=== PATIENT | male | born 1995 | race African-American/Black ===

== ENCOUNTER 2023-01-17 02:10 | Emergency (ER) | payer MEDICAID, SELFPAY ==
[2023-01-17 02:12] VITALS: BP 144/80; PULSE 91; RESP 18; TEMP 36.6; O2SAT 94; BMI 24.0
--- NOTE | 2023-01-17 02:30 | ED.RN ---
per Dr. Quach no need for sitter at this time patient does not present with a plan
[2023-01-17 02:43] LABS: Absolute Neutrophil Count 5.5 X10^3/uL (2.0-7.7); Basophil# 0.03 X10^3/uL; Basophil% 0.4 % (0-1); Eosinophil# 0.08 X10^3/uL; Hematocrit 47.8 % (40-54); Hemoglobin 15.8 g/dL (13.0-16.5); Lymphocyte % 23.8 % (19-41); Mean Corp Hgb Conc 33.1 g/dL (32-36); Mean Corpuscular Hgb 29.3 pg (27.0-32.0); Mean Corpuscular Volume 88.5 fL (80-94); Mean Platelet Vol. 9.2 fl (6.2-12.0); Monocyte# 0.49 X10^3/uL; Monocyte% 6.1 % (0-10); NRBC Flagged by Analyzer 0 % (0-5); Neutrophil # 5.47 X10^3/uL (2.7-7.7); Neutrophil % 68.6 % (47-70); Platelet Count 403 K/mm3 (150-450); RBC Distribution Width CV 12.2 % (11.6-14.6); RBC Distribution Width SD 39.8 fl (35.1-43.9)
[2023-01-17 02:56] LABS: Anion Gap 8 (5-15); BUN 9 mg/dL (7-18); Calcium,Total 8.8 mg/dL (8.5-10.1); Chloride 107 mmol/L (98-107); EST Glomerular Filtration Rate 96 mL/min (>60); Est Glom Filt Rate - Afr Amer 117 mL/min (>60); Estimated Creatinine Clearance 122.87 ml/min; Glucose 109 mg/dL (74-106); Potassium 3.5 mmol/L (3.5-5.1); Sodium Level 141 mmol/L (136-145)
[2023-01-17 03:33] LABS: Amphetamine Urine VISTA NEGATIVE (<1000 ng/mL); Barbiturate Urine VISTA NEGATIVE (< 200 ng/mL); Benzodiazepine Urine VISTA NEGATIVE (< 200 ng/mL); Cocaine Urine VISTA POSITIVE (< 300 ng/mL); Ecstacy Urine VISTA NEGATIVE (< 500 ng/mL); Methadone Urine VISTA NEGATIVE (< 300 ng/mL); PCP Urine VISTA NEGATIVE (< 25 ng/mL); THC Urine VISTA POSITIVE (< 50 ng/mL); Vista UDS pH Range 6
--- NOTE | 2023-01-17 03:40 | NURSING ---
CALLED CRISIS AT [id number]
--- NOTE | 2023-01-17 04:53 | ED.RN ---
crisis on the phone with patient at this time
--- NOTE | 2023-01-17 05:17 | EDS_ITS ---
HPI History of Present Illness Chief Complaint: Suicidal Narrative Narrative: Patient was brought into the hospital by police secondary to suicidal ideation. Please states that the patient went to the [facility] seeking help for depression with suicidal ideation. Patient states that his aunt recently and this is causing increased depression and he has thoughts of harming himself. As the patient has stated this to the police officers as well as the [facility] there was concern that he would need placed in the psychiatric hospital and therefore was brought to the hospital for medical clearance. Upon arrival the patient does voice depression with suicidal ideation. He states he was admitted to a psychiatric hospital years ago when he thought about jumping off a bridge. He denies alcohol or illicit drug use at this time and states that he does not have a plan of how to harm himself but based on his aunts recent passing and worsening depression has thoughts of suicide. [facility] Medical History Bipolar 1 disorder Schizoaffective disorder Home Medications gabapentin 600 mg tablet 600 mg PO TID 01/17/23 [History Last Taken Unknown] quetiapine 400 mg tablet (Seroquel) 400 mg PO DAILY 01/17/23 [History Last Taken Unknown] trazodone 300 mg tablet 300 mg PO QHS 01/17/23 [History Last Taken Unknown] Allergy/AdvReac Type Severity Reaction Status Date / Time acetaminophen [From Vicodin] Allergy Other Verified 01/17/23 02:17 hydrocodone [From Vicodin] Allergy Other Verified 01/17/23 02:17 Social History Smoking Status: Never smoker [facility] ED Constitutional Constitutional ED: Denies chills or fever(s) Eyes Eyes: Denies change in vision ENT ENT ED: Denies sore throat Cardiovascular Cardiovascular: Denies chest pain Respiratory/Chest Respiratory/Chest: Denies cough or dyspnea Gastrointestinal Gastrointestinal: Denies abdominal pain, diarrhea, nausea or vomiting Genitourinary Genitourinary ED: Denies dysuria Musculoskeletal Musculoskeletal: Denies myalgias Integumentary Denies rash Neurologic Neurologic: Denies headache(s) Psychiatric Psychiatric: Reports depression, suicidal ideation and suicidal thoughts Hematologic/Lymphatic Hematologic/Lymphatic: Denies easy bleeding or easy bruising EXAM Physical Exam Const Vital Signs: 01/17/23 02:12 01/17/23 06:15 Temperature 97.9 F Temperature Source Temporal Pulse Rate 91 Respiratory Rate 18 18 Blood Pressure 144/80 H Blood Pressure Mean 101 Pulse Ox 94 100 Oxygen Delivery Method Room Air Room Air Positive well nourished and well developed General Appearance ED: well developed Eyes PERRL and EOMs intact bilaterally Neck supple Chest Wall palpation of chest normal Resp normal respiratory effort and clear to auscultation bilaterally Cardio regular rate and regular rhythm Rate: other Other Details: Radial pulses are plus 2 out of 4 bilaterally are equal and symmetric GI normal to inspection, nondistended, normoactive bowel sounds, non-tender, non- distended and no masses GI Narrative: No voluntary guarding or rigidity no pulsatile mass or fluid wave Auscultation: normoactive bowel sounds Palpation: soft Extremity normal to inspection Neuro oriented x3, CN's II-XII intact bilaterally and no sensory deficits noted Sensorium / Orientation: alert Psych Psych Narrative: Patient has a manic affect with flight of ideas but also suicidal ideation Skin no rashes or lesions noted MDM MDM MDM Narrative Medical decision making narrative: Patient was brought in by police secondary to suicidal ideation. He reported a remote history of suicide ideation with need for psychiatric placement. At this time he does not have an overt plan but he also shows signs of kyle with flight of ideas and tangential thought. Based on his suicidal ideation along with these changes consistent with manic bipolar episode I do feel he would benefit from placement so a psychiatric work-up was performed. Patient denied alcohol use prior to arrival but his value was 90. However this is below 100 and therefore he is still able to talk to crisis center. Patient also had marijuana and cocaine in his system but marijuana can last for 30 days and cocaine 3 to 5 days. Pressure is only slightly elevated and he is not tachycardic so I have low concern that he did this illicit drug recently. The patient was medically cleared from an emergency room standpoint and crisis center evaluated the patient. They agree that with his poor support status suicidal ideation and manic phase that he would benefit from treatment and recommend placement. The patient has been medically cleared from emergency room standpoint for transfer/placement to psychiatric hospital History & Record Review Discussion w/independent historian: Patient Lab Data Attestation: I reviewed the patient's lab results. Labs: Laboratory Results - last 24 hr 01/17/23 01/17/23 01/17/23 02:35 02:35 02:35 WBC 8.0 RBC 5.40 Hgb 15.8 Hct 47.8 MCV 88.5 MCH 29.3 MCHC 33.1 RDW Std Deviation 39.8 RDW Coeff of Deric 12.2 Plt Count 403 MPV 9.2 Immature Gran % (Auto) 0.100 Neut % (Auto) 68.6 Lymph % (Auto) 23.8 Alpine % (Auto) 6.1 Eos % (Auto) 1.0 Baso % (Auto) 0.4 Absolute Neuts (auto) 5.5 Absolute Lymphs (auto) 1.90 Nucleated RBC % 0 Sodium 141 Potassium 3.5 Chloride 107 Carbon Dioxide 26.0 Anion Gap 8 BUN 9 Creatinine 1.00 Estim Creat Clear Calc 122.87 Est GFR (MDRD) Af Amer 117 Est GFR (MDRD) Non-Af 96 BUN/Creatinine Ratio 9.0 L Glucose 109 H Calcium 8.8 Urine Opiates Screen Urine Methadone Screen Ur Barbiturates Screen Ur Phencyclidine Scrn Ur Amphetamines Screen MDMA (Ecstasy) Screen U Benzodiazepines Scrn Urine Cocaine Screen U Cannabinoids Screen Ur Drug Screen Comment Ethyl Alcohol 90.0 01/17/23 03:00 WBC RBC Hgb Hct MCV MCH MCHC RDW Std Deviation RDW Coeff of Deric Plt Count MPV Immature Gran % (Auto) Neut % (Auto) Lymph % (Auto) Alpine % (Auto) Eos % (Auto) Baso % (Auto) Absolute Neuts (auto) Absolute Lymphs (auto) Nucleated RBC % Sodium Potassium Chloride Carbon Dioxide Anion Gap BUN Creatinine Estim Creat Clear Calc Est GFR (MDRD) Af Amer Est GFR (MDRD) Non-Af BUN/Creatinine Ratio Glucose Calcium Urine Opiates Screen NEGATIVE Urine Methadone Screen NEGATIVE Ur Barbiturates Screen NEGATIVE Ur Phencyclidine Scrn NEGATIVE Ur Amphetamines Screen NEGATIVE MDMA (Ecstasy) Screen NEGATIVE U Benzodiazepines Scrn NEGATIVE Urine Cocaine Screen POSITIVE H U Cannabinoids Screen POSITIVE H Ur Drug Screen Comment Ethyl Alcohol Discharge Plan Triage Chief Complaint: Suicidal ED Provider: Corey Quach Dx/Rx/DC Orders Clinical Impression: Depression with suicidal ideation, Moderate bipolar I disorder with kyle as current episode Prescriptions: No Action gabapentin 600 mg Tablet 600 mg PO TID trazodone 300 mg Tablet 300 mg PO QHS quetiapine [Seroquel] 400 mg Tablet 400 mg PO DAILY Primary Care Provider: Care Physician,No Primary Referrals: Care Physician,No Primary [Primary Care Provider] - Disposition Disposition: Psychiatric Hospital or Unit
[2023-01-17 06:15] VITALS: RESP 18; O2SAT 100
--- NOTE | 2023-01-17 08:19 | ED.RN ---
0848 LATONYA FROM CRISIS CONTACTED THE ED REGARDING PLACEMENT. HE HAS BEEN REFERRED TO [facility], AWAITING PLACEMENT.
[2023-01-17 09:00] VITALS: BP 117/65; PULSE 73; RESP 15; TEMP 37.1; O2SAT 97
--- NOTE | 2023-01-17 10:37 | CM.ED ---
Social Work Pt accepted to [facility] and awaiting transport. Scheduled for approx. 12:45. Edith Remy MANUFACTURING TECHNOLOGY ANALYST, TUNE UP MECHANIC
== END 2023-01-17 13:14 ==
PROVIDERS: Emergency Provider Emergency Medicine; Visit Provider Emergency Medicine
DX: R45.851 Suicidal ideations (principal); F25.9 Schizoaffective disorder, unspecified; F31.9 Bipolar disorder, unspecified
CPT/HCPCS: 36415; 80048; 80307; 82077; 85025; 87811; 99284

== ENCOUNTER 2023-01-31 15:56 | Emergency (ER) | payer MEDICAID, SELFPAY ==
[2023-01-31 15:58] VITALS: BP 138/80; PULSE 100; RESP 18; TEMP 36.1; O2SAT 95; BMI 25.5
--- NOTE | 2023-01-31 16:59 | EX.ED.VIS.PS ---
HPI HPI - Psych History of Present Illness Chief Complaint: Suicidal Associated Symptoms Associated Symptoms - Psych: Positive for Depressed, Suicidal Thoughts and Auditory Hallucinations; Negative for Confusion, Paranoia or Visual Hallucinations Specific plan (suicidal thought): Overdose on pills Narrative Narrative: Patient presents with suicidal ideations that began today. Patient states he started hearing voices today. Patient states they are telling him to hurt himself. Patient states he has a plan to overdose on pills. Patient denies any visual hallucinations. Patient states nothing makes his symptoms better nothing makes them worse. Patient states the voices come and go. Patient states he does not currently see a psychiatrist. Patient does not take any medications. [facility] Medical History Bipolar 1 disorder Schizoaffective disorder Home Medications quetiapine 400 mg tablet (Seroquel) 400 mg PO DAILY 01/17/23 [History Last Taken Unknown] trazodone 300 mg tablet 300 mg PO QHS 01/17/23 [History Last Taken Unknown] hydroxyzine pamoate 50 mg capsule (Vistaril) 50 mg PO BID PRN Anxiety 01/31/23 [History Last Taken Unknown] Allergy/AdvReac Type Severity Reaction Status Date / Time acetaminophen [From Vicodin] Allergy Other Verified 01/31/23 16:01 hydrocodone [From Vicodin] Allergy Other Verified 01/31/23 16:01 Surgical History no surgical history no surgical history Social History (Updated 01/31/23 @ 17:[address] Paresh Sidhu DO) Smoking Status: Current every day smoker tobacco type: cigarettes Smoking packs per day: 0.5 Smoking cigarettes per day: 10.0 alcohol intake: current alcohol intake frequency: 0-2 drinks per day Alcohol type: beer ROS ROS ED Constitutional Constitutional ED: Denies chills or fever(s) Eyes Eyes: Denies blurry vision or change in vision ENT ENT ED: Denies rhinorrhea or sore throat Cardiovascular Cardiovascular: Denies chest pain or palpitations Respiratory/Chest Respiratory/Chest: Denies cough or dyspnea Gastrointestinal Gastrointestinal: Denies nausea or vomiting Genitourinary Genitourinary ED: Denies dysuria or hematuria Musculoskeletal Musculoskeletal: Denies back pain or neck pain Integumentary Denies abscess or rash Neurologic Neurologic: Denies headache(s) or weakness Psychiatric Psychiatric: Reports depression, suicidal ideation and suicidal thoughts Allergic/Immunologic Allergic/Immunologic ED: Denies mouth swelling or urticaria EXAM Physical Exam Const Vital Signs: 01/31/23 15:58 01/31/23 19:42 01/31/23 20:02 Temperature 97 F L Temperature Source Temporal Pulse Rate 100 85 Respiratory Rate 18 18 16 Blood Pressure 138/80 H 129/85 H Blood Pressure Mean 99 99 Pulse Ox 95 99 Oxygen Delivery Method Room Air Room Air 02/01/23 00:11 Temperature Temperature Source Pulse Rate Respiratory Rate 18 Blood Pressure Blood Pressure Mean Pulse Ox Oxygen Delivery Method Room Air Positive well nourished and well developed General Appearance ED: well developed and NAD HEENT normocephalic and atraumatic Neck supple and no JVD Resp normal respiratory effort and clear to auscultation bilaterally Cardio no murmurs Rate: regular rate Rhythm: regular rhythm GI non-tender and non-distended Auscultation: normoactive bowel sounds Palpation: soft Extremity normal to inspection General Extremety ED: Negative for edema or tenderness General Extremity: Negative for edema Neuro oriented x3, CN's II-XII intact bilaterally and no sensory deficits noted Sensorium / Orientation: alert Motor Exam: strength 5/5 throughout Psych mental status grossly normal Appearance: well kempt Attitude: calm Activity / Motor Behavior: avoids eye contact Speech: minimal and soft Mood & Affect: depressed and flat affect Thought Content: suicidality and hallucination(s) Positive for auditory Skin Rashes: no rashes MDM MDM MDM Narrative Medical decision making narrative: Medical screening labs will be obtained. CBC will be obtained to assess for leukocytosis and anemia. Basic metabolic profile will be obtained to assess for electrolyte abnormality and renal function. Serum alcohol level will be obtained to assess for alcohol intoxication. Urine tox screen will be obtained to assess for substance abuse. COVID-19 rapid antigen will be obtained to assess for COVID-19 infection. Lab Data Attestation: I reviewed the patient's lab results. Lab results narrative: CBC was reviewed and was within normal limits. Basic metabolic profile was reviewed and was within normal limits. Serum alcohol level was reviewed and was less than 3.0. COVID-19 rapid antigen was reviewed and was negative. Urine tox screen was reviewed and was positive for cocaine and cannabinoids. Labs: Laboratory Results - last 24 hr 01/31/23 01/31/23 01/31/23 16:16 16:16 17:15 WBC 10.0 RBC 4.97 Hgb 14.7 Hct 44.9 MCV 90.3 MCH 29.6 MCHC 32.7 RDW Std Deviation 41.4 RDW Coeff of Deric 12.7 Plt Count 346 MPV 9.6 Immature Gran % (Auto) 0.400 Neut % (Auto) 72.9 H Lymph % (Auto) 17.6 L Chase % (Auto) 7.8 Eos % (Auto) 1.0 Baso % (Auto) 0.3 Absolute Neuts (auto) 7.3 Absolute Lymphs (auto) 1.75 Nucleated RBC % 0 Sodium Potassium Chloride Carbon Dioxide Anion Gap BUN Creatinine Estim Creat Clear Calc Est GFR (MDRD) Af Amer Est GFR (MDRD) Non-Af BUN/Creatinine Ratio Glucose Calcium Total Creatine Kinase Urine Color Yellow Urine Clarity Clear Urine pH 7.0 Ur Specific [place] 1.010 Urine Protein 30 H Urine Glucose (UA) Normal Urine Ketones 5 H Urine Occult Blood 10 H Urine Nitrite Negative Urine Bilirubin Negative Urine Urobilinogen 1 H Ur Leukocyte Esterase 25 H Urine RBC 0 SEEN Urine WBC 0-5 SEEN Ur Squamous Epith Cells 0 SEEN Urine Bacteria 2+ Urine Mucus 1+ Urine Opiates Screen NEGATIVE Urine Methadone Screen NEGATIVE Ur Barbiturates Screen NEGATIVE Ur Phencyclidine Scrn NEGATIVE Ur Amphetamines Screen NEGATIVE MDMA (Ecstasy) Screen NEGATIVE U Benzodiazepines Scrn NEGATIVE Urine Cocaine Screen POSITIVE H U Cannabinoids Screen POSITIVE H Ur Drug Screen Comment Ethyl Alcohol 01/31/23 01/31/23 01/31/23 17:15 17:15 17:15 WBC RBC Hgb Hct MCV MCH MCHC RDW Std Deviation RDW Coeff of Deric Plt Count MPV Immature Gran % (Auto) Neut % (Auto) Lymph % (Auto) Chase % (Auto) Eos % (Auto) Baso % (Auto) Absolute Neuts (auto) Absolute Lymphs (auto) Nucleated RBC % Sodium 141 Potassium 3.9 Chloride 107 Carbon Dioxide 28.0 Anion Gap 6 BUN 12 Creatinine 1.13 Estim Creat Clear Calc 99.06 Est GFR (MDRD) Af Amer 101 Est GFR (MDRD) Non-Af 83 BUN/Creatinine Ratio 10.6 Glucose 99 Calcium 8.9 Total Creatine Kinase 3141 H Urine Color Urine Clarity Urine pH Ur Specific [place] Urine Protein Urine Glucose (UA) Urine Ketones Urine Occult Blood Urine Nitrite Urine Bilirubin Urine Urobilinogen Ur Leukocyte Esterase Urine RBC Urine WBC Ur Squamous Epith Cells Urine Bacteria Urine Mucus Urine Opiates Screen Urine Methadone Screen Ur Barbiturates Screen Ur Phencyclidine Scrn Ur Amphetamines Screen MDMA (Ecstasy) Screen U Benzodiazepines Scrn Urine Cocaine Screen U Cannabinoids Screen Ur Drug Screen Comment Ethyl Alcohol < 3.0 Management Discussion w/another healthcare provider: utility worker production/Case management Treatment and Re-Evaluation Narrative: utility worker production was in to evaluate the patient. She felt that the patient would benefit from inpatient psychiatric treatment. She will arrange for transfer to a psychiatric facility. Patient is agreeable with the plan. All questions were answered. Patient was tentatively accepted to a psychiatric facility. However, they requested a total CPK be drawn. This came back elevated at 3141. Because of this, 2 L of normal saline were infused. Urinalysis was obtained to assess for myoglobinuria and urine pH. Urinalysis showed occult blood and with 0 red blood cells, indicating low levels of myoglobin in the urine. Urine pH was 7.0. Repeat CPK was ordered after the infusion of 2 L of normal saline. This is pending. Care of the patient will be turned over to the oncoming physician pending repeat CPK results and transfer to psychiatric facility. Discharge Plan Triage Chief Complaint: Suicidal ED Provider: Paresh Sidhu Dx/Rx/DC Orders Clinical Impression: Suicidal ideation, Auditory hallucination Prescriptions: No Action trazodone 300 mg Tablet 300 mg PO QHS quetiapine [Seroquel] 400 mg Tablet 400 mg PO DAILY hydroxyzine pamoate [Vistaril] 50 mg Capsule 50 mg PO BID PRN (Reason: Anxiety) Primary Care Provider: Care Physician,No Primary Referrals: Care Physician,No Primary [Primary Care Provider] - Disposition Disposition: Psychiatric Hospital or Unit
[2023-01-31 17:26] LABS: Absolute Lymphocyte Count 1.75 X10^3/uL (0.83-4.51); Absolute Neutrophil Count 7.3 X10^3/uL (2.0-7.7); Basophil# 0.03 X10^3/uL; Basophil% 0.3 % (0-1); Hematocrit 44.9 % (40-54); Hemoglobin 14.7 g/dL (13.0-16.5); Lymphocyte # 1.75 X10^3/ul (0.83-4.51); Lymphocyte % 17.6 % (19-41); Mean Corp Hgb Conc 32.7 g/dL (32-36); Mean Corpuscular Hgb 29.6 pg (27.0-32.0); Mean Corpuscular Volume 90.3 fL (80-94); Mean Platelet Vol. 9.6 fl (6.2-12.0); Monocyte# 0.78 X10^3/uL; Monocyte% 7.8 % (0-10); NRBC Flagged by Analyzer 0 % (0-5); Neutrophil # 7.26 X10^3/uL (2.7-7.7); Neutrophil % 72.9 % (47-70); Platelet Count 346 K/mm3 (150-450); RBC Distribution Width CV 12.7 % (11.6-14.6); RBC Distribution Width SD 41.4 fl (35.1-43.9); Red Blood Count 4.97 M/mm3 (4.6-6.2)
[2023-01-31 17:40] LABS: Anion Gap 6 (5-15); BUN 12 mg/dL (7-18); BUN/Creat Ratio 10.6 RATIO (10-20); Calcium,Total 8.9 mg/dL (8.5-10.1); Chloride 107 mmol/L (98-107); Creatinine, Serum 1.13 mg/dL (0.70-1.30); EST Glomerular Filtration Rate 83 mL/min (>60); Est Glom Filt Rate - Afr Amer 101 mL/min (>60); Estimated Creatinine Clearance 99.06 ml/min; Glucose 99 mg/dL (74-106); Potassium 3.9 mmol/L (3.5-5.1); Sodium Level 141 mmol/L (136-145)
[2023-01-31 17:40] LABS: Amphetamine Urine VISTA NEGATIVE (<1000 ng/mL); Barbiturate Urine VISTA NEGATIVE (< 200 ng/mL); Benzodiazepine Urine VISTA NEGATIVE (< 200 ng/mL); Cocaine Urine VISTA POSITIVE (< 300 ng/mL); Ecstacy Urine VISTA NEGATIVE (< 500 ng/mL); Methadone Urine VISTA NEGATIVE (< 300 ng/mL); PCP Urine VISTA NEGATIVE (< 25 ng/mL); THC Urine VISTA POSITIVE (< 50 ng/mL); Vista UDS pH Range 6
[2023-01-31 18:05] LABS: Alcohol, Blood (Medical)-Serum < 3.0 mg/dL
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
[2023-01-31 19:42] VITALS: BP 129/85; PULSE 85; RESP 18; O2SAT 99
[2023-01-31 20:02] VITALS: RESP 16
[2023-01-31 21:36] LABS: CPK Total, Creatine Kinase 3141 U/L (39-308)
--- NOTE | 2023-01-31 21:55 | CM.ED ---
Social Work Patient referred for psych placement at [facility] and [facility]. [facility] requested CPK lab. CPK results faxed and [facility] reports it is extremely high and they would like it below 1500 before they will accept him. Requesting to fax redraw when below 1500. Edith Remy MANAGER ETL, ELECTRICAL AND ELECTRONIC ASSEMBLER
[2023-01-31] MEDS: 0.9% Normal Saline 1,000 ML 999 ML IV (23:10)
[2023-02-01] VITALS (9 sets, daily range): BP systolic 122; BP diastolic 86; PULSE 74; RESP 16–18; O2SAT 95–98
[2023-02-01] MEDS: 0.9% Normal Saline 1,000 ML 999 ML IV ×2 (00:03→02:22)
[2023-02-01 00:13] LABS: Color, Urine Yellow (Yellow); Glucose, Dipstick Normal (Normal); Ketone-Dipstick 5 mg/dl (Negative); Leukocyte Esterase-Dipstick 25 /ul (Negative); Nitrite-Dipstick Negative (Negative); Occult Blood-Urine 10 /ul (Negative); Protein-Dipstick 30 mg/dl (Negative); Red Blood Cells-Urine 0 SEEN /hpf (0-5); Squamous Epithelial Cells - UA 0 SEEN /hpf (0-5); Urine Bilirubin Dipstick Negative (Negative); Urine Clarity Clear (Clear); Urine Urobilinogen 1 mg/dl (Normal)
[2023-02-01 00:22] LABS: Bacteria 2+ /hpf (None Seen); White Blood Cells 0-5 SEEN /hpf (0-5)
[2023-02-01 00:23] LABS: Mucous, Urine 1+ /hpf (<or=2+)
[2023-02-01 02:12] LABS: CPK Total, Creatine Kinase 1930 U/L (39-308)
[2023-02-01] MEDS: QUEtiapine 100 MG Tablet 400 MG PO (02:21)
[2023-02-01 05:54] LABS: CPK Total, Creatine Kinase 1780 U/L (39-308)
[2023-02-01] MEDS: 0.9% Normal Saline 1,000 ML 250 ML IV (07:43)
--- NOTE | 2023-02-01 10:02 | CM.ED ---
Social Work SW received voicemail from [facility] admission staff stating they were declining patient due to behavioral acuity. MAYRA contacted [facility] to inquire about progress with patient's referral. Admission staff explained the patient has been accepted to their dual diagnosis unit, however, they need his CK levels to be below 1500 and a pink slip faxed to their facility before they provide accepting information. Care team updated. Plan: [facility] LUCAS, JAYJAY
--- NOTE | 2023-02-01 12:01 | ED.RN ---
pt is rude and disrespectful towards staff, cussing at staff. pt is rudeful towards Tiana the sitter, calling her names and demanding another sitter. pt is staring at sitter, grimacing. pt demanding new food. HRO and security at bedside.
--- NOTE | 2023-02-01 12:07 | ED.RN ---
THIS RN CALLED INTO PT'S ROOM. PT DEMANDING THAT HE SEE A DOCTOR RIGHT NOW. PT STATES I AM NOT PINK SLIPPED, I AM NOT SUICIDAL AND I WANT TO LEAVE RIGHT NOW. THIS RN STATES THAT SHE WILL ASK THE DR TO COME IN TO SPEAK WITH THE PATIENT. PT THEN BEGINS GETTING INCREASINGLY AGITATED. HRO NOTIFIED AND RETURNS TO BEDSIDE OF PT WITH THIS RN. PT STATES THAT HE IS DOES NOT WANT TO SEE THIS RN OR ANYONE ELSE BUT THE DR. PT DEMANDING NEW FOOD FOR LUNCH AT THIS TIME WELL. DR. BARAHONA NOTIFIED OF PATIENT AGITATION AT THIS TIME.
[2023-02-01 12:41] LABS: CPK Total, Creatine Kinase 1395 U/L (39-308)
--- NOTE | 2023-02-01 13:56 | NURSING ---
[facility] CALLED WITH ACCEPTANCE TO THEIR [place] LOCATION-- [address] V[address]LELA-- [address]-- RN TO RN-- [phone]-- CALLED PHYSICIANS TO SET UP TRANSPORT-- ETA GIVEN 20 MINUTES-- [id number]
--- NOTE | 2023-02-01 13:59 | CM.ED ---
Addendum entered by Lexi Hernandez 02/01/23 15:00: MAYRA contacted [facility] to inquire about rules regarding medication as patient was agitated regarding placement. [facility] staff report patient would have to be here four hrs after medication before he could be transported. MAYRA updated care team, patient is currently cooperative. HRO at bedside, no medication given. ETA 20 mins Plan: [facility] JAYJAY Mckenzie Original Note: Social Work Note [facility] has accepted patient under [facility], dual unit [address], [id number] [phone]. legal secretary to arrange transportation ETA 20 mins. MAYRA updated [facility] of accepting information. Plan: JAYJAY Ocampo
--- NOTE | 2023-02-01 14:17 | ED.RN ---
REPORT CALLED TO [facility] AT THIS TIME.
--- NOTE | 2023-02-01 14:22 | ED.RN ---
PT IV DISCONTINUED AT THIS TIME. PT TOLD THAT HE WAS PLACED AT [facility] IN [place]. PT STATES I DONT WANT TO DO THIS ANYMORE. NOPE. WHERE'S THE DOCTOR? THIS RN AND JESSICA CHARGE NURSE EXPLAIN TO PT THAT HE IS PINK SLIPPED AND THE DOCTOR DOES NOT HAVE A SAY IN WHERE THE PATIENT IS PLACED. FIRE EQUIPMENT OPERATOR DAWN EXPLAINS THAT [facility] IS THE ONLY PLACE TO ACCEPT PT AT THIS TIME/. PT LAYS BACK IN BED AND CLOSES EYES TO SLEEP
--- NOTE | 2023-02-01 14:25 | ED.RN ---
PT BECOMES AGITATED AND WALKS OUT TO NURSES STATION DEMANDING HIS BELONGINGS. THIS RN TELLS PATIENT THAT AT THIS TIME HE IS UNABLE TO HAVE HIS BELONGINGS. PT DEMANDING TO SEE HIS PINK SLIP AND STATES THAT POLICE TOLD ME LAST NIGHT THAT IM NOT PINK SLIPPED. LET ME SEE IT. THIS RN ASKS PATIENT IF HE COULD GO BACK TO HIS ROOM AND WE COULD TALK THERE. PT BECOMES INCREASINGLY AGITATED AND BEGINS TO RUN FROM STAFF STATING THAT HE IS LEAVING. PT CONTINUES TO RUN AWAY FROM STAFF AND RUNS PAST [place] ROOM OPERATOR OFFICES INTO [employer]. THIS RN ASKS PATIENT TO COME BACK TO ROOM AND PT RUNS TO GROUND FLOOR PUSHING OTHER PATIENTS AND [facility] STAFF. THIS RN FOLLOWS PATIENT TO SEE WHICH WAY HE WAS RUNNING TO NOTIFY PD. CODE SID ACTIVATED.
== END 2023-02-01 15:59 ==
PROVIDERS: Emergency Medicine; Emergency Provider Emergency Medicine; Visit Provider Emergency Medicine
DX: R45.851 Suicidal ideations (principal); F17.210 Nicotine dependence, cigarettes, uncomplicated; R44.0 Auditory hallucinations
CPT/HCPCS: 80048; 80307; 81001; 82077; 82550; 85025; 87811; 99281; J7030; A4216

== ENCOUNTER 2023-06-03 11:26 | Outpatient (REF) | payer SELFPAY ==
[2023-06-03 11:27] VITALS: BP 92/74; PULSE 90; RESP 18; TEMP 36.1; O2SAT 100
--- NOTE | 2023-06-03 11:59 | EX.ED.DYSGE1 ---
HPI History of Present Illness Chief Complaint: ETOH Intox Informant: patient and police/traveling phlebotomist Narrative Narrative: 27-year-old male presenting to the emergency department with the police. Patient reportedly was arrested in [place] on a [facility] warrant. He tells me that he was sleeping outside. He states that he is not homeless that he stays at his aunts. When asked why he was sleeping outside he tells me it was none of my business. He states that he did have alcohol last night but will not tell me how much and of what. He denies ingesting any substances or prescription medications. Reportedly had a episode of emesis and was brought to the emergency department prior to booking at the intermediate. I asked the patient about his red left eye and he tells me its not of my business and that it is his right to not disclose medical information to me. When asked if he has any medical concerns he wishes to speak with me about he tells me no. PFSH PFSH Medical History Bipolar 1 disorder Schizoaffective disorder Home Medications quetiapine 400 mg tablet (Seroquel) 400 mg PO DAILY 01/17/23 [History Last Taken Unknown] trazodone 300 mg tablet 300 mg PO QHS 01/17/23 [History Last Taken Unknown] hydroxyzine pamoate 50 mg capsule (Vistaril) 50 mg PO BID PRN Anxiety 01/31/23 [History Last Taken Unknown] Allergy/AdvReac Type Severity Reaction Status Date / Time acetaminophen [From Vicodin] Allergy Other Verified 06/03/23 11:26 hydrocodone [From Vicodin] Allergy Other Verified 06/03/23 11:26 Social History Smoking Status: Current every day smoker tobacco type: cigarettes alcohol intake: current alcohol intake frequency: 0-2 drinks per day Alcohol type: beer ROS ROS ED Constitutional Constitutional ED: Denies chills, fever(s) or weight loss Eyes Eyes: Denies change in vision or diplopia ENT ENT ED: Denies ear pain, rhinorrhea or sore throat Cardiovascular Cardiovascular: Denies chest pain, orthopnea, palpitations or racing heartbeat Respiratory/Chest Respiratory/Chest: Denies cough, dyspnea or orthopnea Gastrointestinal Gastrointestinal: Reports vomiting; Denies abdominal pain, diarrhea or nausea Genitourinary Genitourinary ED: Denies dysuria, hematuria or urinary frequency Musculoskeletal Musculoskeletal: Denies arthralgias or myalgias Integumentary Denies abscess or rash Neurologic Neurologic: Denies headache(s) or weakness Psychiatric Psychiatric: Denies anxiety, depression, suicidal ideation or suicidal thoughts Endocrine Endocrinology: Denies polydipsia, polyphagia or polyuria Allergic/Immunologic Allergic/Immunologic ED: Denies mouth swelling, tongue swelling or urticaria EXAM Physical Exam Narrative Exam Narrative: Patient smells of vomit Const Vital Signs: 06/03/23 11:27 Temperature 97 F L Temperature Source Temporal Pulse Rate 90 Respiratory Rate 18 Blood Pressure 92/74 Blood Pressure Mean 80 Pulse Ox 100 Oxygen Delivery Method Room Air Positive well nourished and well developed General Appearance ED: well developed HEENT Reports normocephalic, head/scalp atraumatic and moist mucous membranes Eyes Eyes Narrative: The left eye appears to have a slight lateral gaze. The conjunctiva is injected greater than the right. He will not open his eyes for me to do a full examination Neck no lymphadenopathy, supple and no JVD Resp normal respiratory effort and clear to auscultation bilaterally Cardio regular rate, regular rhythm and no murmurs GI normal to inspection, nondistended, normoactive bowel sounds and non-tender Palpation: soft Back/Spine no CVA tenderness and normal ROM Extremity normal to inspection General Extremety ED: Negative for edema General Extremity: Negative for edema Neuro oriented x3 and CN's II-XII intact bilaterally Neuro Narrative: Patient is able to sit up on the bed without assistance. He is able to refuse questioning and answer certain questions. Sensorium / Orientation: alert Motor Exam: strength 5/5 throughout Psych mental status grossly normal Mood & Affect: Negative for depressed or tearful Skin no rashes or lesions noted and no wounds MDM MDM MDM Narrative Medical decision making narrative: Patient states he does not have any medical concerns he wishes to be addressed here in the emergency department. I did recheck his blood pressure personally and is 104/71. His heart rate on my examination is 78. He is alert and oriented x3. He currently has no complaints other than he wishes something to eat. Patient will be remanded over to lawn for cement. Discharge Plan Triage Chief Complaint: ETOH Intox ED Provider: Sea Ybarra Dx/Rx/DC Orders Prescriptions: No Action trazodone 300 mg Tablet 300 mg PO QHS quetiapine [Seroquel] 400 mg Tablet 400 mg PO DAILY hydroxyzine pamoate [Vistaril] 50 mg Capsule 50 mg PO BID PRN (Reason: Anxiety) Primary Care Provider: Care Physician,No Primary Referrals: Care Physician,No Primary [Primary Care Provider] -
[2023-06-03 12:20] VITALS: RESP 16
== END 2023-06-03 11:45 ==
LOC: ED 11:26
PROVIDERS: Visit Provider Emergency Medicine
DX: R11.10 Vomiting, unspecified (principal); F25.9 Schizoaffective disorder, unspecified; F31.9 Bipolar disorder, unspecified; F17.210 Nicotine dependence, cigarettes, uncomplicated; F10.10 Alcohol abuse, uncomplicated; Y90.9 Presence of alcohol in blood, level not specified

== ENCOUNTER 2023-10-05 20:37 | Observation (INO) | payer MEDICAID, SELFPAY ==
[2023-10-05 20:38] VITALS: BP 142/98; PULSE 75; RESP 16; TEMP 36.4; O2SAT 98; BMI 23.3
--- NOTE | 2023-10-05 22:53 | EDS_ITS ---
HPI History of Present Illness Chief Complaint: Substance Abuse Informant: patient Onset/Context/Timing Onset: Month(s) Context: Gradual Onset Timing: Continuous Current Severity: Moderate Maximum Severity: Moderate Associated Symptoms Associated Symptoms: Positive for vomiting* and diarrhea*; Negative for fever*, rash*, seizure, tremor or palpatations Narrative Narrative: 27-year-old male history of cocaine and fentanyl abuse by snorting it. Denies any IV drug abuse. He also drinks about 1/5 of vodka a day. Said he had a substance abuse problem for at least 2 years. He did have detox about 2 years ago around [place]. States recently has had some nausea, vomiting and diarrhea from what he thought was withdrawal. He did use cocaine and fentanyl within the last 24 hours and drank in the last 24 hours. He denies any fever. Prior similar symptoms: Yes Recent Illness/Hospitalization: No [facility] Medical History (Updated 10/05/23 @ 23:[address] Heather Jeffers MD) Bipolar 1 disorder ETOH abuse Opiate abuse, continuous Schizoaffective disorder Home Medications quetiapine 400 mg tablet (Seroquel) 400 mg PO DAILY 01/17/23 [History Last Taken Unknown] trazodone 300 mg tablet 300 mg PO QHS 01/17/23 [History Last Taken Unknown] hydroxyzine pamoate 50 mg capsule (Vistaril) 50 mg PO BID PRN Anxiety 01/31/23 [History Last Taken Unknown] Allergy/AdvReac Type Severity Reaction Status Date / Time acetaminophen [From Vicodin] Allergy Other Verified 10/05/23 23:11 hydrocodone [From Vicodin] Allergy Other Verified 10/05/23 23:11 Social History Smoking Status: Current every day smoker tobacco type: cigarettes alcohol intake: current alcohol intake frequency: 0-2 drinks per day Alcohol type: beer ROS ROS ED ROS Narrative Withdrawal including nausea, vomiting diarrhea. Review of Systems ROS Unobtainable: Denies due to encephalopathy Constitutional Constitutional ED: Denies chills or fever(s) Eyes Eyes: Denies blurry vision ENT ENT ED: Denies ear pain Cardiovascular Cardiovascular: Denies chest pain Respiratory/Chest Respiratory/Chest: Denies cough or dyspnea Gastrointestinal Gastrointestinal: Reports diarrhea, nausea and vomiting; Denies abdominal pain, constipation or melena Genitourinary Genitourinary ED: Denies dysuria Musculoskeletal Musculoskeletal: Denies arthralgias Integumentary Denies abscess Neurologic Neurologic: Denies headache(s) Psychiatric Psychiatric: Denies anxiety Endocrine Endocrinology: Denies cold intolerance Hematologic/Lymphatic Hematologic/Lymphatic: Denies easy bleeding Allergic/Immunologic Allergic/Immunologic ED: Denies mouth swelling, tongue swelling or urticaria EXAM Physical Exam Narrative Exam Narrative: Well-appearing 27-year-old male vital signs stable afebrile. Does not look septic toxic or in any distress. HEENT exam unremarkable. Neck nontender no lymphadenopathy. Lungs clear to auscultation bilaterally. Heart regular rhythm no murmur rate about 75. Chest wall nontender. Abdomen soft nontender. Moving all 4 extremities. Nontender no edema. No track vega. No signs of infection. Back nontender. Neurologically is awake and alert with no focal motor deficits. Answering questions and following commands. He is cooperative. Const Vital Signs: 10/05/23 20:38 10/05/23 23:15 10/05/23 23:22 Temperature 97.6 F L Temperature Source Temporal Pulse Rate 75 79 85 Respiratory Rate 16 16 16 Blood Pressure 142/98 H 131/61 H 131/61 H Blood Pressure Mean 112 84 84 Pulse Ox 98 98 97 Oxygen Delivery Method Room Air Room Air Positive well nourished and well developed; Negative for obese, cachectic, contractures or unkempt General Appearance ED: well developed and NAD; Negative for unkempt, cachectic, contractures or pallor Nutritional Appearance: Negative for cachectic or obese HEENT Reports moist mucous membranes; Denies dry mucous membranes atraumatic; Negative for trauma or tenderness Mouth ED: No dry mucous membranes Mouth: No dry mucous membranes Eyes PERRL and EOMs intact bilaterally General Eye ED: Negative for pale conjunctiva or scleral icterus Neck no lymphadenopathy, supple and no JVD Thyroid: Negative for tender Lymph Lymphatic: no lymphadenopathy noted; Negative for lymphadenopathy Chest Wall inspection of chest normal and palpation of chest normal Chest: Negative for other Resp normal respiratory effort and clear to auscultation bilaterally Effort and Inspection: Negative for retractions Auscultation: Negative for rales, rhonchi or wheezes Cardio regular rate, regular rhythm, S1 normal heart sound, S2 normal heart sound and no murmurs Rate: Negative for bradycardia or tachycardic Rhythm: Negative for abnormal rhythm Bruits: Negative for other GI soft to palpation, non-tender, non-distended and no masses Inspection: Negative for abdominal distention Palpation: Negative for tender, guarding or rigid Back/Spine no CVA tenderness General Back: Negative for CVA tenderness Cervical Spine: Negative for cervical spine tenderness Thoracic Spine / Upper Back: Negative for thoracic spinal tenderness Lumbar Spine / Lower Back: Negative for lumbar spinal tenderness Coccyx: Negative for swelling Extremity General Extremety ED: Negative for edema or tenderness General Extremity: Negative for edema Neuro oriented x3 and CN's II-XII intact bilaterally Sensorium / Orientation: alert, oriented to person, oriented to place and oriented to time; Negative for confused, lethargic or stuporous Speech: speech normal Motor Exam: strength 5/5 throughout Psych mental status grossly normal and thought process normal Appearance: Negative for unkempt Attitude: No belligerent, No agitated and No aggressive Skin General Skin Exam: Negative for jaundice or pallor Lesions: no lesions Rashes: no rashes Trauma: Negative for abrasion MDM MDM MDM Narrative Medical decision making narrative: 27-year-old male history of cocaine, fentanyl and alcohol abuse requesting detox. Exam benign. Repeat exam patient doing well at 11:30 PM. I spoke to the hospitalist he will be admitted for detox. Currently he is resting comfortably. History & Record Review Discussion w/independent historian: Patient Lab Data Attestation: I reviewed the patient's lab results. Lab results narrative: CBC shows a white count of 6. H&H of 15 and 48. Platelets 281. Urine tox screen is positive for benzos, cocaine and cannabis. Labs: Laboratory Results - last 24 hr 10/05/23 10/05/23 23:00 23:10 WBC 6.5 RBC 5.48 Hgb 15.4 Hct 48.3 MCV 88.1 MCH 28.1 MCHC 31.9 L RDW Std Deviation 40.8 RDW Coeff of Deric 12.4 Plt Count 281 MPV 10.5 Immature Gran % (Auto) 0.200 Neut % (Auto) 45.8 L Lymph % (Auto) 42.4 H [place] % (Auto) 9.2 Eos % (Auto) 1.8 Baso % (Auto) 0.6 Absolute Neuts (auto) 3.0 Absolute Lymphs (auto) 2.76 Nucleated RBC % 0 Urine Opiates Screen NEGATIVE Urine Methadone Screen NEGATIVE Ur Barbiturates Screen NEGATIVE Ur Phencyclidine Scrn NEGATIVE Ur Amphetamines Screen NEGATIVE MDMA (Ecstasy) Screen NEGATIVE U Benzodiazepines Scrn POSITIVE H Urine Cocaine Screen POSITIVE H U Cannabinoids Screen POSITIVE H Ur Drug Screen Comment Discharge Plan Dx/Rx/DC Orders Clinical Impression: Admitted to alcohol detoxification center, Admitted to substance misuse detoxification center, History of alcohol abuse, History of drug abuse Disposition Disposition: Acute Care Hospital [facility]
[2023-10-05 23:15] VITALS: BP 131/61; PULSE 79; RESP 16; O2SAT 98
--- NOTE | 2023-10-05 23:19 | HP.PCM_ITS ---
HPI - General General Date of Admission: 10/05/23 Date of Service: 10/05/23 HPI Narrative TY RAUL RIGGS, is a 27 M with a PMH as outlined who presents via the ED on 10/05/2023 with a complaint of opioid withdrawal. He uses fentanyl as well as cocaine dnad usually snorts it. He also drinks a fifth of vodka daily. HE admitted to some nausea, vomiting and diarrhea and thought it was due to withdrawal. He last used cocaine and fentanyl as well as alcohol within the past 24 hours prior to admission. Review of systems is otherwise negative. Vitals were IL of 79, RR of 16 and she was saturating at 98% on room air. CBC and BMP were pending. Urine tox was positive for cocaine and cannabinoids as well as benzodiazepines. Serum alcohol level is pending. He is being admitted to be managed for acute alcohol withdrawal as well as acute opioid withdrawal. FORMERLY [facility], [facility] Medical History (Updated 10/05/23 @ 23:[address] Heather Jeffers MD) Bipolar 1 disorder ETOH abuse Opiate abuse, continuous Schizoaffective disorder Home Medications quetiapine 400 mg tablet (Seroquel) 400 mg PO QHS sleep 01/17/23 [History Last Taken Unknown] trazodone 300 mg tablet 300 mg PO QHS sleep 01/17/23 [History Last Taken Unknown] hydroxyzine pamoate 50 mg capsule (Vistaril) 50 mg PO BID PRN Anxiety 01/31/23 [History Last Taken Unknown] Allergy/AdvReac Type Severity Reaction Status Date / Time acetaminophen [From Vicodin] Allergy Other Verified 10/05/23 23:11 hydrocodone [From Vicodin] Allergy Other Verified 10/05/23 23:11 Social History Smoking Status: Current every day smoker tobacco type: cigarettes alcohol intake: current alcohol intake frequency: 0-2 drinks per day Alcohol ty pe: beer ROS Constitutional Constitutional: Denies anorexia, chills, fatigue, fever(s), malaise or night sweats Eyes Eyes: Denies change in vision ENT HEENT: Denies dysphagia or headache(s) Cardiovascular Cardiovascular: Denies chest pain, edema, orthopnea, palpitations or paroxysmal nocturnal dyspnea Respiratory/Chest Respiratory/Chest: Denies cough, shortness of breath at rest or shortness of breath with exertion Gastrointestinal Gastrointestinal: Denies abdominal pain Musculoskeletal Musculoskeletal: Denies joint pain Neurologic Neurologic: Denies confusion, dizziness, focal weakness, headache(s) or weakness Psychiatric Psychiatric: Denies anxiety Vital Signs Vital Signs Vital Signs: 10/05/23 20:38 10/05/23 23:15 Temperature 97.6 F L Temperature Source Temporal Pulse Rate 75 79 Respiratory Rate 16 16 Blood Pressure 142/98 H Blood Pressure Mean 112 Pulse Ox 98 98 Oxygen Delivery Method Room Air Room Air Weight Weight: 172 lb Body Mass Index (BMI) 23.3 Physical Exam Const alert, oriented x3 and no apparent distress General Appearance: cooperative HEENT normocephalic, head/scalp atraumatic and moist oral mucous membranes Eyes PERRL and EOMs intact bilaterally Neck no lymphadenopathy and supple Lymph Lymphatic: no lymphadenopathy noted and no lymphedema noted Resp normal respiratory effort, normal air movement and clear to auscultation bilaterally Cardio regular rate, regular rhythm, S1 normal heart sound, S2 normal heart sound and no murmurs GI normal to inspection, nondistended, normoactive bowel sounds, soft to palpation and non-tender Extremity normal capillary refill, no clubbing, cyanosis or edema and no calf tenderness General Extremity: no tenderness to palpation of joints or extremities Skin General Skin Exam: no breakdown Neuro CN's II-XII intact bilaterally, no focal motor deficits and no sensory deficits noted Motor Exam: strength 5/5 throughout and general weakness Psych thought process normal, cooperative and affect normal Appearance: appropriate Results Lab / Micro Data 10/05/23 23:10 10/05/23 23:10 Labs: Laboratory Results - last 24 hr 10/05/23 23:00: Ur Drug Screen Comment Assessment & Plan Assessment/Plan (1) Alcohol withdrawal: (2) Opioid withdrawal: PLAN: Plan #Acute alcohol withdrawal * Serum alcohol level is <3. Started on alcohol withdrawal protocol with phenobarbital. * Thiamine, folic acid and Multivite * adjunctive meds for symptomatic relief * monitor CIWA score * #Acute opioid withdrawal * urine tox positive for benzodiazepines, opioids and cocaine * start on opioid withdrawal protocol with buprenorphine. * adjunctive meds for symptomatic relief * DVT prophylaxis; SCDs Charges/Coding Visit Charges Inpatient E&M: 97343 Init Hosp L3
[2023-10-05 23:20] LABS: Amphetamine Urine VISTA NEGATIVE (<1000 ng/mL); Barbiturate Urine VISTA NEGATIVE (< 200 ng/mL); Benzodiazepine Urine VISTA POSITIVE (< 200 ng/mL); Cocaine Urine VISTA POSITIVE (< 300 ng/mL); Ecstacy Urine VISTA NEGATIVE (< 500 ng/mL); Methadone Urine VISTA NEGATIVE (< 300 ng/mL); PCP Urine VISTA NEGATIVE (< 25 ng/mL); THC Urine VISTA POSITIVE (< 50 ng/mL); Vista UDS pH Range 6
[2023-10-05 23:21] LABS: Absolute Lymphocyte Count 2.76 X10^3/uL (0.83-4.51); Basophil# 0.04 X10^3/uL; Basophil% 0.6 % (0-1); Eosinophil# 0.12 X10^3/uL; Eosinophils% 1.8 % (0-5); Hematocrit 48.3 % (40-54); Hemoglobin 15.4 g/dL (13.0-16.5); Lymphocyte # 2.76 X10^3/ul (0.83-4.51); Lymphocyte % 42.4 % (19-41); Mean Corp Hgb Conc 31.9 g/dL (32-36); Mean Corpuscular Hgb 28.1 pg (27.0-32.0); Mean Corpuscular Volume 88.1 fL (80-94); Mean Platelet Vol. 10.5 fl (6.2-12.0); Monocyte% 9.2 % (0-10); NRBC Flagged by Analyzer 0 % (0-5); Neutrophil # 2.98 X10^3/uL (2.7-7.7); Neutrophil % 45.8 % (47-70); Platelet Count 281 K/mm3 (150-450); RBC Distribution Width CV 12.4 % (11.6-14.6); RBC Distribution Width SD 40.8 fl (35.1-43.9); Red Blood Count 5.48 M/mm3 (4.6-6.2); White Blood Count 6.5 K/mm3 (4.4-11.0)
[2023-10-05 23:22] VITALS: BP 131/61; PULSE 85; RESP 16; O2SAT 97
[2023-10-05 23:37] LABS: Alcohol, Blood (Medical)-Serum < 3.0 mg/dL
[2023-10-05 23:44] LABS: ALB/GLOB Ratio 1.1 RATIO (0.9-2.4); AST(SGOT) 65 U/L (15-37); Alanine Aminotransfer ALT/SGPT 45 U/L (16-61); Albumin, Serum 4.1 g/dL (3.2-5.0); Alkaline Phosphatase 99 U/L (45-117); Anion Gap 6 (5-15); BUN 15 mg/dL (7-18); BUN/Creat Ratio 14.7 RATIO (10-20); Calcium,Total 9.2 mg/dL (8.5-10.1); Chloride 105 mmol/L (98-107); Creatinine, Serum 1.02 mg/dL (0.70-1.30); EST Glomerular Filtration Rate 93 mL/min (>60); Est Glom Filt Rate - Afr Amer 113 mL/min (>60); Estimated Creatinine Clearance 120.46 ml/min; Globulin 3.6 g/dL (2.2-4.2); Glucose 87 mg/dL (74-106); Potassium 3.7 mmol/L (3.5-5.1); Protein, Total 7.7 g/dL (6.4-8.2); Sodium Level 138 mmol/L (136-145)
[2023-10-06 01:16] VITALS: BMI 23.8
[2023-10-06 01:32] VITALS: BP 139/70; PULSE 77; RESP 14; TEMP 36.3; O2SAT 100
[2023-10-06] MEDS: Phenobarbital 32.4 MG Tablet 97.2000000000000028 MG PO ×2 (01:47→14:01)
[2023-10-06 06:00] VITALS: BP 97/60; PULSE 74; RESP 14; TEMP 36.6; O2SAT 100
[2023-10-06] MEDS: 0.9% Saline Lock 10 ML Syringe IV (06:18)
--- NOTE | 2023-10-06 08:22 | PN.HOSP_ITS ---
Reason for Visit Reason for Visit: Diagnoses Alcohol use, unspecified with withdrawal, unspecified (10/05/23) Opioid use, unspecified with withdrawal (10/05/23) Subjective Subjective Patient is a 27-year-old male with history of polysubstance abuse including alcohol and opioids admitted with withdrawal from both substances admitted to regular nursing floor for further management Objective Data Objective Data Vital Signs: Vital Signs Temp Pulse Resp BP Pulse Ox O2 Del Method 97.9 F 74 14 97/60 100 Room Air 10/06/23 06:00 10/06/23 06:00 10/06/23 06:00 10/06/23 06:00 10/06/23 06:00 10/06/23 06:00 Oxygen Delivery Method Room Air Weight: 79.56 kg Body Mass Index (BMI) 23.8 Intake & Output: Intake and Output for Last 24 Hours 10/04/23 10/05/23 10/06/23 23:59 23:59 23:59 Intake Total 350 / 350 Balance 350 / 350 Lab / Micro Data 10/05/23 23:10 10/05/23 23:10 Labs: Laboratory Results - last 24 hr 10/05/23 23:00: Urine Opiates Screen NEGATIVE, Urine Methadone Screen NEGATIVE, Ur Barbiturates Screen NEGATIVE, Ur Phencyclidine Scrn NEGATIVE, Ur Amphetamines Screen NEGATIVE, MDMA (Ecstasy) Screen NEGATIVE, U Benzodiazepines Scrn POSITIVE H, Urine Cocaine Screen POSITIVE H, U Cannabinoids Screen POSITIVE H, Ur Drug Screen Comment 10/05/23 23:10: WBC 6.5, RBC 5.48, Hgb 15.4, Hct 48.3, MCV 88.1, MCH 28.1, MCHC 31.9 L, RDW Std Deviation 40.8, RDW Coeff of Deric 12.4, Plt Count 281, MPV 10.5, Immature Gran % (Auto) 0.200, Neut % (Auto) 45.8 L, Lymph % (Auto) 42.4 H, [place] % (Auto) 9.2, Eos % (Auto) 1.8, Baso % (Auto) 0.6, Absolute Neuts (auto) 3.0, Absolute Lymphs (auto) 2.76, Nucleated RBC % 0, Sodium 138, Potassium 3.7, Chloride 105, Carbon Dioxide 27.0, Anion Gap 6, BUN 15, Creatinine 1.02, Estim Creat Clear Calc 120.46, Est GFR (MDRD) Af Amer 113, Est GFR (MDRD) Non-Af 93, BUN/Creatinine Ratio 14.7, Glucose 87, Calcium 9.2, Total Bilirubin 0.40, AST 65 H, ALT 45, Alkaline Phosphatase 99, Total Protein 7.7, Albumin 4.1, Globulin 3.6, Albumin/Globulin Ratio 1.1, Ethyl Alcohol < 3.0 Physical Exam Narrative GENERAL: cooperative HEENT: Atraumatic; normocephalic EYES; Anicteric, Normal Conjunctiva NECK; supple, normal thyroid, RESPIRATORY: Diminished to auscultation CARDIOVASCULAR: Regular S1 S2, GI: soft, normoactive bowel sounds, : No Renal angle tenderness; EXTREMITIES: No edema, no clubbing, MUSCULOSKELETAL: no muscle wasting NEURO: Awake; no lateralizing signs. SKIN: No Rash PSYCH; Flat affect Assessment & Plan Assessment/Plan (1) Alcohol withdrawal: (2) Opioid withdrawal: PLAN: Plan Patient is a 27-year-old male with history of polysubstance abuse including alcohol and opioids admitted with withdrawal from both substances admitted to regular nursing floor for further management 1. Acute alcohol withdrawal ? Patient has been admitted to regular medical floor currently being managed with phenobarb taper in addition to adjuvant medications for symptom management patient was apparently refusing phenobarb did talk to patient on the need to be compliant. Did explain to patient we will not replace phenobarb with Ativan. Did complain about developing pruritus as a side effect of phenobarb ordered Benadryl as needed 2. Acute opioid withdrawal ? Patient is onbuprenorphine. 3. Polysubstance dependence including benzos opioids cocaine as well as alcohol patient counseled on the need for cessation consult placed to [facility] counseling services 4. Tobacco dependence - Counseled on cessation, offered nicotine patch for tobacco cravings 5. DVT prophylaxis ? Low risk encourage early ambulation Time spent in the patient's overall evaluation,decision-making process, review of diagnostic data, adjustment of management, discussion with other providers, nursing nursing and ancillary staff involved in patient's care documentation, 40 Minutes Charges/Coding Visit Charges Inpatient E&M: 60002 Subs Hosp L2
[2023-10-06] MEDS: Folic Acid 1 MG Tablet PO (09:02)
[2023-10-06] MEDS: Thiamine Hydrochloride 100 MG Tablet PO (09:02)
[2023-10-06] MEDS: Ensure Plus High Protein 120 ML LIQUID PO (09:02)
[2023-10-06 09:11] VITALS: BP 120/70; PULSE 76; RESP 16; TEMP 36.6; O2SAT 96
--- NOTE | 2023-10-06 12:13 | ADDICTION ---
This creative services writer met with PT to conduct ASAM, MSE, AUDIT, DUDIT assessments and to plan for d/c. PT A+Ox4 and participated actively. All assessments completed and placed in PT's chart. PT plans to f/u with follow-up treatment services, however he wanted to discuss it with his mother upon d/c. He reports that he plans to go to [facility]. PT indicated a need for transportation post d/c from [facility]. [id number] through [facility] will be called once discharged.
[2023-10-06] MEDS: Ondansetron 8 MG Tablet PO (12:26)
[2023-10-06] MEDS: Gabapentin 300 MG Capsule PO (12:26)
[2023-10-06 14:00] VITALS: BP 101/55; PULSE 80; RESP 16; TEMP 36.6; O2SAT 98
--- NOTE | 2023-10-06 15:18 | NURSING ---
After a lengthy discussion with patient, he has decided he wants to leave AMA. Dr. Ojeda was sent a message to notify of same. Patient signed [facility] paperwork and copy was given to patient.
--- NOTE | 2023-10-06 15:45 | PCM.DC.SUM ---
Providers Date of Admission: 10/05/23 Date of Discharge: 10/06/23 Primary Care Physician: Felicia Primary Care Phys Reason For Visit: ACUTE OPIOID & ALCOHOL WITHDRAWL Diagnosis Discharge Diagnosis (1) Alcohol withdrawal: Status: Acute Code(s): F10.939 - Alcohol use, unspecified with withdrawal, unspecified (2) Opioid withdrawal: Status: Acute Code(s): F11.93 - Opioid use, unspecified with withdrawal Plan Patient is a 27-year-old male with history of polysubstance abuse including alcohol and opioids admitted with withdrawal from both substances admitted to regular nursing floor for further management 1. Acute alcohol withdrawal ? Patient has been admitted to regular medical floor currently being managed with phenobarb taper in addition to adjuvant medications for symptom management patient was apparently refusing phenobarb did talk to patient on the need to be compliant. Did explain to patient we will not replace phenobarb with Ativan. Did complain about developing pruritus as a side effect of phenobarb ordered Benadryl as needed ? Patient left AGAINST MEDICAL ADVICE just a day after his admission. Attempt made for patient to rescind his decision proved futile 2. Acute opioid withdrawal ? Patient is onbuprenorphine. 3. Polysubstance dependence including benzos opioids cocaine as well as alcohol patient counseled on the need for cessation consult placed to [facility] counseling services 4. Tobacco dependence - Counseled on cessation, offered nicotine patch for tobacco cravings 5. DVT prophylaxis ? Low risk encourage early ambulation Time spent in the patient's overall evaluation,decision-making process, review of diagnostic data, adjustment of management, discussion with other providers, nursing nursing and ancillary staff involved in patient's care documentation, 40 Minutes Medications at Discharge Home Medications quetiapine 400 mg tablet (Seroquel) 400 mg PO QHS sleep 01/17/23 trazodone 300 mg tablet 300 mg PO QHS sleep 01/17/23 hydroxyzine pamoate 50 mg capsule (Vistaril) 50 mg PO BID PRN Anxiety 01/31/23 Hospital Course Summary of Care Provided Minutes Spent on Discharge: 40 Physical Exam Narrative GENERAL: cooperative HEENT: Atraumatic; normocephalic EYES; Anicteric, Normal Conjunctiva NECK; supple, normal thyroid, RESPIRATORY: Diminished to auscultation CARDIOVASCULAR: Regular S1 S2, GI: soft, normoactive bowel sounds, : No Renal angle tenderness; EXTREMITIES: No edema, no clubbing, MUSCULOSKELETAL: no muscle wasting NEURO: Awake; no lateralizing signs. SKIN: No Rash PSYCH; Flat affect Weight / BMI Weight Weight: 79.56 kg Body Mass Index (BMI) 23.8 ABG / Lab / Microbiology Data 10/05/23 23:10 10/05/23 23:10 Laboratory: Laboratory Results - last 24 hr 10/05/23 23:00: Urine Opiates Screen NEGATIVE, Urine Methadone Screen NEGATIVE, Ur Barbiturates Screen NEGATIVE, Ur Phencyclidine Scrn NEGATIVE, Ur Amphetamines Screen NEGATIVE, MDMA (Ecstasy) Screen NEGATIVE, U Benzodiazepines Scrn POSITIVE H, Urine Cocaine Screen POSITIVE H, U Cannabinoids Screen POSITIVE H, Ur Drug Screen Comment 10/05/23 23:10: WBC 6.5, RBC 5.48, Hgb 15.4, Hct 48.3, MCV 88.1, MCH 28.1, MCHC 31.9 L, RDW Std Deviation 40.8, RDW Coeff of Deric 12.4, Plt Count 281, MPV 10.5, Immature Gran % (Auto) 0.200, Neut % (Auto) 45.8 L, Lymph % (Auto) 42.4 H, [place] % (Auto) 9.2, Eos % (Auto) 1.8, Baso % (Auto) 0.6, Absolute Neuts (auto) 3.0, Absolute Lymphs (auto) 2.76, Nucleated RBC % 0, Sodium 138, Potassium 3.7, Chloride 105, Carbon Dioxide 27.0, Anion Gap 6, BUN 15, Creatinine 1.02, Estim Creat Clear Calc 120.46, Est GFR (MDRD) Af Amer 113, Est GFR (MDRD) Non-Af 93, BUN/Creatinine Ratio 14.7, Glucose 87, Calcium 9.2, Total Bilirubin 0.40, AST 65 H, ALT 45, Alkaline Phosphatase 99, Total Protein 7.7, Albumin 4.1, Globulin 3.6, Albumin/Globulin Ratio 1.1, Ethyl Alcohol < 3.0 D/C Instructions Discharge Diet: No restrictions Discharge Activity: Return to Normal Activity Call your doctor if you observe: Fever of 101 or Higher, Shortness of breath, Fainting spells and Chest pain Meaningful Use Info Meaningful Use Diagnoses (Choose all that apply): None applicable Discharge Plan Admission Admit Date/Time: 10/05/23 23:28 Attending Provider: Valente Ojeda Primary Care Provider: Care Physician,No Primary Consulting Providers: Heather Jeffers Discharge Orders/Prescriptions Prescriptions: No Action trazodone 300 mg Tablet 300 mg PO QHS quetiapine [Seroquel] 400 mg Tablet 400 mg PO QHS hydroxyzine pamoate [Vistaril] 50 mg Capsule 50 mg PO BID PRN (Reason: Anxiety) Referrals / Follow Up: Care Physician,No Primary [Primary Care Provider] - Disposition Disposition (needs filled in before D/C Order can be placed): Against Medical Advice Charges/Coding Visit Charges Inpatient E&M: 56520 Disch Hosp >30min
== END 2023-10-06 15:35 | disposition left against medical advice (07) | DRG 770 ==
LOC: ED 22:59 → MS2 10-06 07:29
PROVIDERS: Admitting Provider Student in an Organized Health Care Education/Training Program; Emergency Provider Emergency Medicine; Visit Provider Internal Medicine
DX: F10.239 Alcohol dependence with withdrawal, unspecified (principal); F25.9 Schizoaffective disorder, unspecified; F11.23 Opioid dependence with withdrawal; F14.20 Cocaine dependence, uncomplicated; F31.9 Bipolar disorder, unspecified; F17.210 Nicotine dependence, cigarettes, uncomplicated; Z53.29 Procedure and treatment not carried out because of patient's decision for other reasons; Z79.899 Other long term (current) drug therapy; Y90.0 Blood alcohol level of less than 20 mg/100 ml
CPT/HCPCS: 80053; 80307; 80320; 85025; 97802; 99221; 99284; A4216; G0378; G0480